=== PATIENT | male | born 1950 | race Two or more races ===

== ENCOUNTER → 2024-08-06 | Emergency (ER) | payer OTHER ==
[~2024-08-06] VITALS: Ht 177.8 cm; Wt 65.8 kg
[~2024-08-06] MED LIST: BACLOFEN10 MG PO; EZALLOR SPRINKLE5 MG; IBU600 MG PO; KETOROLAC TROMETHAMINE 60 MG VIAL IM ONE; NASAL MIST126 ML
== END | disposition home or self-care (01) ==
LOC: ER 16:24
DX: S09.8XXA Other specified injuries of head, initial encounter (principal); W19.XXXA Unspecified fall, initial encounter; Y93.89 Activity, other specified; Y92.832 Beach as the place of occurrence of the external cause; Y99.8 Other external cause status
CPT/HCPCS: 70450; 96372; 99284; J1885